=== PATIENT | male | born 1935 | race Caucasian/White ===

== ENCOUNTER 2016-05-10 14:31 | Inpatient (IN) | payer MEDICARE, OTHER ==
[~2016-05-10 14:31] MED LIST: ELIQUIS5 M1 PO; HYDROCODON-ACE1 EA16 PO; MOBIC7.5 M2 PO; TENORMIN25 M1 PO
[2016-05-10] MEDS ORDERED: TYLENOL325 M2 PO (14:40)
[2016-05-10] MEDS ORDERED: DIPHENHYDRAMINE25 M2 PO (14:41)
[2016-05-10] MEDS ORDERED: CALMOSEPTINE OI71 G1 TP (14:41)
[2016-05-10] MEDS ORDERED: DEXAMETHASONE4 M1 PO ×3 (14:43→14:47)
[2016-05-10] MEDS ORDERED: FLONASE ALLERG9.9 ML (14:51)
[2016-05-10] MEDS ORDERED: DULCOLAX10 MG PR (14:51)
[2016-05-10] MEDS ORDERED: CLARITIN10 M6 PO (14:51)
[2016-05-10] MEDS ORDERED: MILK OF MAGNESIA PO (14:52)
[2016-05-10] MEDS ORDERED: SENNA PLUS TAB1 EAC1 PO (14:53)
[2016-05-10] MEDS ORDERED: MIRALAX17 G2 PO (14:53)
[2016-05-10] MEDS ORDERED: SINUS DECONGEST10 MG PO (15:01)
[2016-05-10 15:13] LABS: HCT-HEMATOCRIT 39.5 % (36.0-53.5); HGB-HEMOGLOBIN 13.4 gm/dl (13.5-17.0); MCH (MEAN CORPUSCULAR HGB) 32.8 pg (28.0-32.0); MCHC MEAN CORPUSCULAR HGB CONC 33.9 % (32.0-36.0); MCV (MEAN CELL VOLUME) 96.8 fl (82.0-96.0); MEAN PLATELET VOLUME 10.8 cmc (9.4-12.4); NEUTROPHIL-AUTOMATED 10.5 tho/cmm (1.6-8.0); PLATELET COUNT 97 tho/cmm (150-450); RED BLOOD COUNT 4.08 mil/cmm (4.40-5.70); RED CELL DISTRIBUTION WIDTH 13.7 % (12.4-16.4)
[2016-05-10 15:20] LABS: BASO % 0.6 % (0-2); BASO ABSOLUTE COUNT 0.1 tho/cmm (0.0-0.2); EOS % 0.3 % (0-7); EOSINOPHIL ABSOLUTE COUNT 0.1 tho/cmm (0.0-0.7); IMMATURE GRANULOCYTES ABSOLUTE 1.14 tho/cmm (0-0.03); IMMATURE GRANULOCYTES PERCENT 7.6 % (0-0.3); LYMPH % 15.2 % (20-45); LYMPH ABSOLUTE COUNT 2.3 tho/cmm (0.8-4.5); MONO % 6.8 % (0-12); NEUTROPHIL ABSOLUTE COUNT 10.5 tho/cmm (1.6-8.0); NEUTROPHILS % 69.5 % (40-80)
[2016-05-10 15:31] LABS: BLOOD UREA NITROGEN 48 mg/dl (6-24); CALCIUM 8.2 mg/dl (8.5-10.5); CARBON DIOXIDE-VENOUS 28 mmol/L (22-32); CHLORIDE 108 mmol/l (96-110); CREATININE 1.08 mg/dl (0.60-1.30); GLUCOSE 102 mg/dL (70-110); SODIUM 145 mmol/L (135-145); eGFR VALUE FOR BLACK 74 mL/Min
[2016-05-10 15:33] LABS: ANION GAP 14 mmol/L (0-20)
[2016-05-10 15:34] LABS: POTASSIUM 4.6 mmol/L (3.7-5.1)
[2016-05-11 08:48] LABS: ANION GAP 14 mmol/L (0-20); BLOOD UREA NITROGEN 48 mg/dl (6-24); CALCIUM 7.6 mg/dl (8.5-10.5); CARBON DIOXIDE-VENOUS 26 mmol/L (22-32); CHLORIDE 111 mmol/l (96-110); CREATININE 0.89 mg/dl (0.60-1.30); GLUCOSE 126 mg/dL (70-110); MAGNESIUM 2.3 mg/dl (1.3-2.6); POTASSIUM 4.4 mmol/L (3.7-5.1); SODIUM 147 mmol/L (135-145); eGFR VALUE FOR BLACK >90 mL/Min
[2016-05-11 08:51] LABS: TSH-THYROID STIMULATING HORM. 1.04 uIU/ml (0.40-3.80)
[2016-05-11 09:16] LABS: HCT-HEMATOCRIT 34.3 % (36.0-53.5); HGB-HEMOGLOBIN 11.7 gm/dl (13.5-17.0); MCH (MEAN CORPUSCULAR HGB) 32.7 pg (28.0-32.0); MCHC MEAN CORPUSCULAR HGB CONC 34.1 % (32.0-36.0); MCV (MEAN CELL VOLUME) 95.8 fl (82.0-96.0); MEAN PLATELET VOLUME 10.3 cmc (9.4-12.4); NEUTROPHIL-AUTOMATED 8.1 tho/cmm (1.6-8.0); PLATELET COUNT 87 tho/cmm (150-450); RED BLOOD COUNT 3.58 mil/cmm (4.40-5.70); RED CELL DISTRIBUTION WIDTH 13.8 % (12.4-16.4); WHITE BLOOD COUNT 10.7 tho/cmm (4.0-10.0)
[2016-05-11 10:19] LABS: BAND % 16 % (0-20); BAND ABSOLUTE COUNT 1.7 tho/cmm (0-2.0)
[2016-05-12 13:03] LABS: HCT-HEMATOCRIT 28.2 % (36.0-53.5); HGB-HEMOGLOBIN 9.2 gm/dl (13.5-17.0); MCH (MEAN CORPUSCULAR HGB) 32.1 pg (28.0-32.0); MCHC MEAN CORPUSCULAR HGB CONC 32.6 % (32.0-36.0); MCV (MEAN CELL VOLUME) 98.3 fl (82.0-96.0); MEAN PLATELET VOLUME 10.3 cmc (9.4-12.4); NEUTROPHIL-AUTOMATED 10.6 tho/cmm (1.6-8.0); PLATELET COUNT 104 tho/cmm (150-450); RED BLOOD COUNT 2.87 mil/cmm (4.40-5.70); RED CELL DISTRIBUTION WIDTH 13.2 % (12.4-16.4); WHITE BLOOD COUNT 12.2 tho/cmm (4.0-10.0)
[2016-05-12 14:00] LABS: BAND % 13 % (0-20); BAND ABSOLUTE COUNT 1.6 tho/cmm (0-2.0)
[2016-05-13 06:16] LABS: PROTHROMBIN TIME 11.7 SECONDS (9.0-13.6)
[2016-05-13 10:10] LABS: HCT-HEMATOCRIT 32.2 % (36.0-53.5); MCH (MEAN CORPUSCULAR HGB) 32.1 pg (28.0-32.0); MCHC MEAN CORPUSCULAR HGB CONC 34.2 % (32.0-36.0); MCV (MEAN CELL VOLUME) 93.9 fl (82.0-96.0); MEAN PLATELET VOLUME 10.8 cmc (9.4-12.4); NEUTROPHIL-AUTOMATED 7.5 tho/cmm (1.6-8.0); PLATELET COUNT 80 tho/cmm (150-450); RED BLOOD COUNT 3.43 mil/cmm (4.40-5.70); RED CELL DISTRIBUTION WIDTH 14.6 % (12.4-16.4)
[2016-05-13 10:34] LABS: ALKALINE PHOSPHATASE 37 U/L (33-138); ALT/SGPT 122 U/L (12-78); ANION GAP 11 mmol/L (0-20); AST/SGOT 38 U/L (10-40); BILIRUBIN,TOTAL 0.3 mg/dl (0.0-1.5); BLOOD UREA NITROGEN 39 mg/dl (6-24); CALCIUM 7.2 mg/dl (8.5-10.5); CARBON DIOXIDE-VENOUS 28 mmol/L (22-32); CHLORIDE 112 mmol/l (96-110); CREATININE 0.83 mg/dl (0.60-1.30); GLUCOSE 107 mg/dL (70-110); POTASSIUM 4.1 mmol/L (3.7-5.1); SODIUM 147 mmol/L (135-145); eGFR VALUE FOR BLACK >90 mL/Min
[2016-05-13 11:32] LABS: BAND % 25 % (0-20); BAND ABSOLUTE COUNT 2.5 tho/cmm (0-2.0)
[2016-05-14 12:16] LABS: HGB-HEMOGLOBIN 9.8 gm/dl (13.5-17.0); MCH (MEAN CORPUSCULAR HGB) 31.8 pg (28.0-32.0); MCHC MEAN CORPUSCULAR HGB CONC 33.8 % (32.0-36.0); MCV (MEAN CELL VOLUME) 94.2 fl (82.0-96.0); NEUTROPHIL-AUTOMATED 4.8 tho/cmm (1.6-8.0); PLATELET COUNT 76 tho/cmm (150-450); RED BLOOD COUNT 3.08 mil/cmm (4.40-5.70); RED CELL DISTRIBUTION WIDTH 14.9 % (12.4-16.4); WHITE BLOOD COUNT 6.4 tho/cmm (4.0-10.0)
[2016-05-14 12:18] LABS: BASO % 0.2 % (0-2); EOS % 0.2 % (0-7); IMMATURE GRANULOCYTES ABSOLUTE 0.45 tho/cmm (0-0.03); LYMPH % 9.8 % (20-45); LYMPH ABSOLUTE COUNT 0.6 tho/cmm (0.8-4.5); MONO % 7.8 % (0-12); MONOCYTE ABSOLUTE COUNT 0.5 tho/cmm (0.0-1.2); NEUTROPHIL ABSOLUTE COUNT 4.8 tho/cmm (1.6-8.0)
[2016-05-15 03:54] LABS: HCT-HEMATOCRIT 30.1 % (36.0-53.5); HGB-HEMOGLOBIN 10.3 gm/dl (13.5-17.0); MCV (MEAN CELL VOLUME) 93.5 fl (82.0-96.0); RED CELL DISTRIBUTION WIDTH 14.8 % (12.4-16.4)
[2016-05-17 05:39] LABS: HCT-HEMATOCRIT 28.5 % (36.0-53.5); HGB-HEMOGLOBIN 9.8 gm/dl (13.5-17.0); MCH (MEAN CORPUSCULAR HGB) 32.2 pg (28.0-32.0); MCHC MEAN CORPUSCULAR HGB CONC 34.4 % (32.0-36.0); MCV (MEAN CELL VOLUME) 93.8 fl (82.0-96.0); NEUTROPHIL-AUTOMATED 3.9 tho/cmm (1.6-8.0); PLATELET COUNT 91 tho/cmm (150-450); RED BLOOD COUNT 3.04 mil/cmm (4.40-5.70); RED CELL DISTRIBUTION WIDTH 15.3 % (12.4-16.4); WHITE BLOOD COUNT 5.6 tho/cmm (4.0-10.0)
[2016-05-17 05:41] LABS: BASO % 0.4 % (0-2); EOS % 0.5 % (0-7); IMMATURE GRANULOCYTES ABSOLUTE 0.54 tho/cmm (0-0.03); IMMATURE GRANULOCYTES PERCENT 9.6 % (0-0.3); LYMPH % 15.7 % (20-45); LYMPH ABSOLUTE COUNT 0.9 tho/cmm (0.8-4.5); MONO % 5.3 % (0-12); MONOCYTE ABSOLUTE COUNT 0.3 tho/cmm (0.0-1.2); NEUTROPHIL ABSOLUTE COUNT 3.9 tho/cmm (1.6-8.0); NEUTROPHILS % 68.5 % (40-80)
[2016-05-17 05:50] LABS: ANION GAP 9 mmol/L (0-20); BLOOD UREA NITROGEN 20 mg/dl (6-24); CALCIUM 7.4 mg/dl (8.5-10.5); CARBON DIOXIDE-VENOUS 28 mmol/L (22-32); CHLORIDE 111 mmol/l (96-110); CREATININE 0.77 mg/dl (0.60-1.30); GLUCOSE 79 mg/dL (70-110); POTASSIUM 3.8 mmol/L (3.7-5.1); SODIUM 144 mmol/L (135-145); eGFR VALUE FOR BLACK >90 mL/Min
[2016-05-19] MEDS ORDERED: AMIODARONE HCL200 M1 PO (10:19)
[2016-05-19] MEDS ORDERED: METOPROLOL TART25 M1 PO (10:21)
[2016-05-19] MEDS ORDERED: NITROSTAT0.4 MG/TAB SL (10:21)
[2016-05-19] MEDS ORDERED: PROTONIX40 M2 PO (10:25)
[2016-05-19] MEDS ORDERED: CARAFATE1 G2 PO (10:25)
[2016-05-19] MEDS ORDERED: ZOVIRAX800 M1 PO (10:37)
== END 2016-05-19 14:32 | DRG 378 ==
LOC: EDMED 14:31 → EMR2 16:40 → PCUB 20:10
PROVIDERS: Emergency Medicine; Internal Medicine; Internal Medicine Gastroenterology; Nurse Practitioner Acute Care; Nurse Practitioner Family; Physician Assistant Medical; ADMIT Internal Medicine Interventional Cardiology
PROC: 30233N1 Transfusion of Nonautologous Red Blood Cells into Peripheral Vein, Percutaneous Approach (ICD-10-PCS; 2016-05-12)
PROC: 0DB98ZX Excision of Duodenum, Via Natural or Artificial Opening Endoscopic, Diagnostic (ICD-10-PCS; principal; 2016-05-13)
PROC: 0DB68ZX Excision of Stomach, Via Natural or Artificial Opening Endoscopic, Diagnostic (ICD-10-PCS; 2016-05-13)
PROC: 0DB58ZX Excision of Esophagus, Via Natural or Artificial Opening Endoscopic, Diagnostic (ICD-10-PCS; 2016-05-17)
DX: K26.4 Chronic or unspecified duodenal ulcer with hemorrhage (principal); B37.81 Candidal esophagitis; C79.31 Secondary malignant neoplasm of brain; D69.6 Thrombocytopenia, unspecified; I24.8 Other forms of acute ischemic heart disease; K76.0 Fatty (change of) liver, not elsewhere classified; K22.10 Ulcer of esophagus without bleeding; D62 Acute posthemorrhagic anemia; I48.0 Paroxysmal atrial fibrillation; R55 Syncope and collapse; I10 Essential (primary) hypertension; K20.9 Esophagitis, unspecified; K31.9 Disease of stomach and duodenum, unspecified; Z85.46 Personal history of malignant neoplasm of prostate; Z85.820 Personal history of malignant melanoma of skin; E78.5 Hyperlipidemia, unspecified; B00.9 Herpesviral infection, unspecified; R00.0 Tachycardia, unspecified; Z79.01 Long term (current) use of anticoagulants; M48.00 Spinal stenosis, site unspecified
CPT/HCPCS: C9113; G0378; J0133; J0282; J7050; P9016

== ENCOUNTER 2016-05-29 17:32 | Inpatient (IN) | payer MEDICARE, OTHER ==
[~2016-05-29 17:32] MED LIST changes: +AMIODARONE HCL200 M1 PO; +CALMOSEPTINE OI71 G1 TP; +CARAFATE1 G2 PO; +CLARITIN10 M6 PO; +DEXAMETHASONE4 M1 PO; +DIPHENHYDRAMINE25 M2 PO; +DULCOLAX10 MG PR; +FLONASE ALLERG9.9 ML; +METOPROLOL TART25 M1 PO; +MILK OF MAGNESIA PO; +MIRALAX17 G2 PO; +NITROSTAT0.4 MG/TAB SL; +PROTONIX40 M2 PO; +SENNA PLUS TAB1 EAC1 PO; +SINUS DECONGEST10 MG PO; +TYLENOL325 M2 PO; +ZOVIRAX800 M1 PO
[2016-05-29] MEDS ORDERED: AMIODARONE HCL200 M1 PO (17:38)
[2016-05-29] MEDS ORDERED: CIPRO500 M2 PO (17:41)
[2016-05-29] MEDS ORDERED: DIPHENHYDRAMINE25 M2 PO (17:41)
[2016-05-29] MEDS ORDERED: CLARITIN10 M6 PO (17:42)
[2016-05-29] MEDS ORDERED: MIRALAX17 G2 PO (17:42)
[2016-05-29] MEDS ORDERED: ZITHROMAX250 M1 PO (17:44)
[2016-05-29] MEDS ORDERED: METOPROLOL TART25 M1 PO (17:46)
[2016-05-29] MEDS ORDERED: SENNA PLUS TAB1 EAC1 PO (17:47)
[2016-05-29] MEDS ORDERED: PROTONIX40 M2 PO (17:47)
[2016-05-29] MEDS ORDERED: DULCOLAX10 MG PR (17:48)
[2016-05-29] MEDS ORDERED: MIDODRINE HCL5 M1 PO (17:48)
[2016-05-29] MEDS ORDERED: CALMOSEPTINE OI71 G1 TP (17:48)
[2016-05-29] MEDS ORDERED: CARAFATE1 GM/10 M1 PO (17:48)
[2016-05-29] MEDS ORDERED: FLONASE ALLERG9.9 ML (17:49)
[2016-05-29] MEDS ORDERED: MILK OF MAGNESIA PO (17:49)
[2016-05-29] MEDS ORDERED: TYLENOL325 M2 PO (17:50)
[2016-05-29] MEDS ORDERED: NITROGLYCERIN0.4 M2 SL (17:50)
[2016-05-29 18:31] LABS: HCT-HEMATOCRIT 29.1 % (36.0-53.5); HGB-HEMOGLOBIN 9.6 gm/dl (13.5-17.0); MCH (MEAN CORPUSCULAR HGB) 31.9 pg (28.0-32.0); MCV (MEAN CELL VOLUME) 96.7 fl (82.0-96.0); MEAN PLATELET VOLUME 9.3 cmc (9.4-12.4); NEUTROPHIL-AUTOMATED 3.2 tho/cmm (1.6-8.0); PLATELET COUNT 202 tho/cmm (150-450); RED BLOOD COUNT 3.01 mil/cmm (4.40-5.70); RED CELL DISTRIBUTION WIDTH 16.7 % (12.4-16.4); WHITE BLOOD COUNT 4.9 tho/cmm (4.0-10.0)
[2016-05-29 18:33] LABS: BASO ABSOLUTE COUNT 0.1 tho/cmm (0.0-0.2); EOS % 0.4 % (0-7); IMMATURE GRANULOCYTES ABSOLUTE 0.25 tho/cmm (0-0.03); IMMATURE GRANULOCYTES PERCENT 5.1 % (0-0.3); LYMPH % 18.4 % (20-45); LYMPH ABSOLUTE COUNT 0.9 tho/cmm (0.8-4.5); MONO % 9.2 % (0-12); MONOCYTE ABSOLUTE COUNT 0.5 tho/cmm (0.0-1.2); NEUTROPHIL ABSOLUTE COUNT 3.2 tho/cmm (1.6-8.0); NEUTROPHILS % 65.9 % (40-80)
[2016-05-29 18:36] LABS: INR 1.2 INR (0.9-1.1); PROTHROMBIN TIME 14.5 SECONDS (9.0-13.6)
[2016-05-29 18:48] LABS: ALB/GLOB RATIO 0.4 (0.8-2.0); ALBUMIN 1.8 g/dl (3.5-5.0); ALKALINE PHOSPHATASE 72 U/L (33-138); ALT/SGPT 24 U/L (12-78); ANION GAP 11 mmol/L (0-20); AST/SGOT 21 U/L (10-40); BILIRUBIN,TOTAL 0.4 mg/dl (0.0-1.5); BLOOD UREA NITROGEN 16 mg/dl (6-24); CALCIUM 7.8 mg/dl (8.5-10.5); CARBON DIOXIDE-VENOUS 28 mmol/L (22-32); CHLORIDE 112 mmol/l (96-110); CREATININE 0.93 mg/dl (0.60-1.30); GLUCOSE 102 mg/dL (70-110); POTASSIUM 3.4 mmol/L (3.7-5.1); SODIUM 148 mmol/L (135-145); eGFR VALUE FOR BLACK 88 mL/Min
[2016-05-29 19:15] LABS: PROCALCITONIN 0.27 ng/ml (0.05-0.09)
[2016-05-29 19:19] LABS: ABG CO2 ARTERIAL 24 mmol/L (21-27); ARTERIAL BLD GAS O2 SATURATION 88 % (95-98); ARTERIAL BLOOD GAS PCO2 31 mmHg (32-45); ARTERIAL PO2 52 mmHg (70-100); BICARBONATE 23 mmol/L (21-28); BLOOD GAS BASE EXCESS 1 mM/L (-/+3); PH 7.48 Units (7.35-7.45)
[2016-05-30 05:46] LABS: HCT-HEMATOCRIT 25.3 % (36.0-53.5); HGB-HEMOGLOBIN 8.2 gm/dl (13.5-17.0); MCH (MEAN CORPUSCULAR HGB) 31.5 pg (28.0-32.0); MCHC MEAN CORPUSCULAR HGB CONC 32.4 % (32.0-36.0); MCV (MEAN CELL VOLUME) 97.3 fl (82.0-96.0); NEUTROPHIL-AUTOMATED 3.1 tho/cmm (1.6-8.0); PLATELET COUNT 195 tho/cmm (150-450); RED CELL DISTRIBUTION WIDTH 16.9 % (12.4-16.4); WHITE BLOOD COUNT 4.5 tho/cmm (4.0-10.0)
[2016-05-30 05:56] LABS: BASO % 0.9 % (0-2); EOS % 0.4 % (0-7); IMMATURE GRANULOCYTES ABSOLUTE 0.26 tho/cmm (0-0.03); IMMATURE GRANULOCYTES PERCENT 5.8 % (0-0.3); LYMPH ABSOLUTE COUNT 0.7 tho/cmm (0.8-4.5); MONO % 8.5 % (0-12); MONOCYTE ABSOLUTE COUNT 0.4 tho/cmm (0.0-1.2); NEUTROPHIL ABSOLUTE COUNT 3.1 tho/cmm (1.6-8.0); NEUTROPHILS % 69.4 % (40-80)
[2016-05-30 06:22] LABS: ANION GAP 13 mmol/L (0-20); BLOOD UREA NITROGEN 14 mg/dl (6-24); CALCIUM 7.4 mg/dl (8.5-10.5); CARBON DIOXIDE-VENOUS 24 mmol/L (22-32); CHLORIDE 115 mmol/l (96-110); CREATININE 0.72 mg/dl (0.60-1.30); GLUCOSE 126 mg/dL (70-110); SODIUM 149 mmol/L (135-145); eGFR VALUE FOR BLACK >90 mL/Min
[2016-05-30 08:44] LABS: URINE APPEARANCE HAZY; URINE BILIRUBIN NEGATIVE (NEG); URINE BLOOD MODERATE (NEG); URINE COLOR YELLOW; URINE GLUCOSE (UA) NEGATIVE (NEG); URINE KETONE NEGATIVE (NEG); URINE LEUKOCYTE ESTERASE POSITIVE (NEG); URINE NITRITE POSITIVE (NEG); URINE PROTEIN MODERATE (NEG); URINE SPECIFIC GRAVITY 1.015 (1.003-1.030)
[2016-05-30 09:17] LABS: URINE WBC 25-30 /[HPF] (0-5)
[2016-05-30 09:18] LABS: URINE EPITHELIAL CELLS 0-3 /[HPF] (0-10)
[2016-05-30 09:20] LABS: URINE BACTERIA 1+
[2016-05-30 14:01] LABS: INR 1.4 INR (0.9-1.1); PROTHROMBIN TIME 16.3 SECONDS (9.0-13.6)
--- NOTE | 2016-05-30 19:13 | NUR ---
05/30/16 @ 1911 REVIEVED WITH AND AGREE WITH CHARTING OF STUDENT NURSE (BORIS TAMAYO). NICHOLAS WHITE RN
[2016-05-31 04:33] LABS: BASO % 0.5 % (0-2); EOS % 0.2 % (0-7); HGB-HEMOGLOBIN 7.6 gm/dl (13.5-17.0); IMMATURE GRANULOCYTES PERCENT 3.3 % (0-0.3); INR 1.5 INR (0.9-1.1); LYMPH % 13.8 % (20-45); LYMPH ABSOLUTE COUNT 0.8 tho/cmm (0.8-4.5); MCH (MEAN CORPUSCULAR HGB) 31.1 pg (28.0-32.0); MCV (MEAN CELL VOLUME) 96.7 fl (82.0-96.0); MEAN PLATELET VOLUME 9.4 cmc (9.4-12.4); MONO % 4.4 % (0-12); MONOCYTE ABSOLUTE COUNT 0.3 tho/cmm (0.0-1.2); NEUTROPHIL ABSOLUTE COUNT 4.7 tho/cmm (1.6-8.0); NEUTROPHIL-AUTOMATED 4.7 tho/cmm (1.6-8.0); NEUTROPHILS % 77.8 % (40-80); PLATELET COUNT 262 tho/cmm (150-450); PROTHROMBIN TIME 17.3 SECONDS (9.0-13.6); RED BLOOD COUNT 2.44 mil/cmm (4.40-5.70); RED CELL DISTRIBUTION WIDTH 16.7 % (12.4-16.4); WHITE BLOOD COUNT 6.1 tho/cmm (4.0-10.0)
[2016-05-31 04:35] LABS: HCT-HEMATOCRIT 23.6 % (36.0-53.5); MCHC MEAN CORPUSCULAR HGB CONC 32.2 % (32.0-36.0)
[2016-05-31 04:41] LABS: ANION GAP 12 mmol/L (0-20); BLOOD UREA NITROGEN 15 mg/dl (6-24); CARBON DIOXIDE-VENOUS 22 mmol/L (22-32); CHLORIDE 116 mmol/l (96-110); GLUCOSE 139 mg/dL (70-110); POTASSIUM 3.2 mmol/L (3.7-5.1); SODIUM 147 mmol/L (135-145); eGFR VALUE FOR BLACK 71 mL/Min
[2016-05-31 04:42] LABS: CREATININE 1.11 mg/dl (0.60-1.30)
[2016-05-31 05:35] LABS: PROCALCITONIN 0.35 ng/ml (0.05-0.09)
[2016-05-31 20:53] LABS: HCT-HEMATOCRIT 28.5 % (36.0-53.5); HGB-HEMOGLOBIN 9.5 gm/dl (13.5-17.0); MCV (MEAN CELL VOLUME) 93.1 fl (82.0-96.0); RED CELL DISTRIBUTION WIDTH 16.5 % (12.4-16.4)
[2016-06-01 03:35] LABS: BASO % 0.4 % (0-2); EOS % 0.3 % (0-7); HCT-HEMATOCRIT 28.8 % (36.0-53.5); HGB-HEMOGLOBIN 9.7 gm/dl (13.5-17.0); IMMATURE GRANULOCYTES PERCENT 4.2 % (0-0.3); LYMPH % 9.9 % (20-45); LYMPH ABSOLUTE COUNT 0.7 tho/cmm (0.8-4.5); MCH (MEAN CORPUSCULAR HGB) 31.1 pg (28.0-32.0); MCHC MEAN CORPUSCULAR HGB CONC 33.7 % (32.0-36.0); MCV (MEAN CELL VOLUME) 92.3 fl (82.0-96.0); MEAN PLATELET VOLUME 9.6 cmc (9.4-12.4); MONO % 3.6 % (0-12); MONOCYTE ABSOLUTE COUNT 0.3 tho/cmm (0.0-1.2); NEUTROPHIL ABSOLUTE COUNT 5.8 tho/cmm (1.6-8.0); NEUTROPHIL-AUTOMATED 5.8 tho/cmm (1.6-8.0); NEUTROPHILS % 81.6 % (40-80); PLATELET COUNT 290 tho/cmm (150-450); RED BLOOD COUNT 3.12 mil/cmm (4.40-5.70); RED CELL DISTRIBUTION WIDTH 17.1 % (12.4-16.4); WHITE BLOOD COUNT 7.2 tho/cmm (4.0-10.0)
[2016-06-01 03:41] LABS: INR 1.4 INR (0.9-1.1); PROTHROMBIN TIME 16.7 SECONDS (9.0-13.6)
[2016-06-01 03:48] LABS: ANION GAP 11 mmol/L (0-20); BLOOD UREA NITROGEN 17 mg/dl (6-24); CALCIUM 7.4 mg/dl (8.5-10.5); CARBON DIOXIDE-VENOUS 24 mmol/L (22-32); CHLORIDE 119 mmol/l (96-110); CREATININE 0.93 mg/dl (0.60-1.30); GLUCOSE 86 mg/dL (70-110); POTASSIUM 3.6 mmol/L (3.7-5.1); SODIUM 150 mmol/L (135-145); eGFR VALUE FOR BLACK 88 mL/Min
== END 2016-06-02 21:43 | disposition expired | DRG 853 ==
LOC: EDMED 17:32 → EMR2 20:40 → PCUB 21:57
PROVIDERS: Emergency Medicine; Family Medicine; Hospitalist; Physician Assistant; ADMIT Internal Medicine
PROC: 02HV33Z Insertion of Infusion Device into Superior Vena Cava, Percutaneous Approach (ICD-10-PCS; 2016-05-30)
PROC: B548ZZA Ultrasonography of Superior Vena Cava, Guidance (ICD-10-PCS; 2016-05-30)
PROC: 5A09357 Assistance with Respiratory Ventilation, Less than 24 Consecutive Hours, Continuous Positive Airway Pressure (ICD-10-PCS; 2016-05-31)
PROC: 30233N1 Transfusion of Nonautologous Red Blood Cells into Peripheral Vein, Percutaneous Approach (ICD-10-PCS; 2016-05-31)
PROC: 06H03DZ Insertion of Intraluminal Device into Inferior Vena Cava, Percutaneous Approach (ICD-10-PCS; principal; 2016-06-01)
PROC: B519YZZ Fluoroscopy of Inferior Vena Cava using Other Contrast (ICD-10-PCS; 2016-06-01)
DX: A41.9 Sepsis, unspecified organism (principal); I26.99 Other pulmonary embolism without acute cor pulmonale; J96.01 Acute respiratory failure with hypoxia; I47.2 Ventricular tachycardia; I82.412 Acute embolism and thrombosis of left femoral vein; C79.31 Secondary malignant neoplasm of brain; E87.0 Hyperosmolality and hypernatremia; K26.4 Chronic or unspecified duodenal ulcer with hemorrhage; I48.0 Paroxysmal atrial fibrillation; D68.9 Coagulation defect, unspecified; I82.432 Acute embolism and thrombosis of left popliteal vein; I82.442 Acute embolism and thrombosis of left tibial vein; Z79.01 Long term (current) use of anticoagulants; I10 Essential (primary) hypertension; Z51.5 Encounter for palliative care; E78.5 Hyperlipidemia, unspecified; D63.8 Anemia in other chronic diseases classified elsewhere; G25.1 Drug-induced tremor; T46.2X5A Adverse effect of other antidysrhythmic drugs, initial encounter; E87.6 Hypokalemia; Z66 Do not resuscitate; I73.9 Peripheral vascular disease, unspecified; Z85.46 Personal history of malignant neoplasm of prostate; K20.9 Esophagitis, unspecified; B00.9 Herpesviral infection, unspecified; J30.9 Allergic rhinitis, unspecified; I25.10 Atherosclerotic heart disease of native coronary artery without angina pectoris
CPT/HCPCS: C1751; C1769; C1880; C9113; G8996-GN-CI; G8997-GN-CI; G8997-GN-CJ; G8998-GN-CI; J0282; J1160; J1644; J2250; J2270; J2405; J2543; J3010; J3370; J3480; J7030; J7040; P9016; Q9967